=== PATIENT | male | born 1985 | race Caucasian/White ===

== ENCOUNTER → 2017-06-06 | Outpatient (CLI) | payer OTHER ==
[~2017-06-06] MED LIST: PHENERGAN 25 TA25 MG PO
== END ==
LOC: ZCOL.LAB 19:15
DX: Z01.818 Encounter for other preprocedural examination (principal); Z86.14 Personal history of Methicillin resistant Staphylococcus aureus infection

== ENCOUNTER → 2017-06-06 | Outpatient (CLI) | payer OTHER | LOC: ZCOL.LAB 17:10 | DX: Z01.818 Encounter for other preprocedural examination (principal); Z86.14 Personal history of Methicillin resistant Staphylococcus aureus infection ==